=== PATIENT | male | born 1995 | race Caucasian/White ===

== ENCOUNTER 2021-02-08 03:28 | Emergency (ER) | payer BC ==
[~2021-02-08] VITALS: Ht 182.9 cm; Wt 115.2 kg
[2021-02-08] MEDS ORDERED: BOOSTRIX/ADACEL VACCINE (DIPHTH/PERTUSS/ACELL/TETANUS) 0.5ML SYR IM ONE (06:15)
[2021-02-08] MEDS ORDERED: DERMABOND TOPICAL SKIN ADHESIVE TOP ONE (06:15)
[2021-02-08 06:29] VITALS: BP 120/77
== END 2021-02-08 06:37 | disposition home or self-care (01) ==
LOC: M ED 03:28
DX: S61.012A Laceration without foreign body of left thumb without damage to nail, initial encounter (principal); X58.XXXA Exposure to other specified factors, initial encounter; Y92.009 Unspecified place in unspecified non-institutional (private) residence as the place of occurrence of the external cause; Y93.9 Activity, unspecified; Y99.9 Unspecified external cause status; F17.290 Nicotine dependence, other tobacco product, uncomplicated; Z91.030 Bee allergy status